=== PATIENT | male | born 1985 | race Caucasian/White ===

== ENCOUNTER 2018-03-27 09:53 | Emergency (ER) | payer OTHER ==
[2018-03-27] MEDS: NS 1,000 ML IV (10:35)
[2018-03-27 10:42] LABS: BASO # 0.1 10^3/uL (0.0-0.2); BASO % 0.7 % (0.0-1.0); EOS # 0.1 10^3/uL (0.0-0.50); EOS % 1.8 % (0.0-3.0); HEMATOCRIT 45.2 % (42.0-52.0); HEMOGLOBIN 15.1 g/dl (13.5-17.5); IMMATURE GRANULOCYTE % 0.3 % (0-3.0); LYMPH # 2.5 10^3/uL (1.5-4.5); LYMPH % 34.6 % (24.0-44.0); MEAN CORPUSCULAR HEMOGLOBIN 30.1 pg (27.0-33.0); MEAN CORPUSCULAR HGB CONC 33.4 g/dl (32.0-36.5); MONO # 0.6 10^3/uL (0.0-0.8); MONO % 8.3 % (0.0-5.0); NEUTROPHILS # 3.9 10^3/uL (1.8-7.7); NEUTROPHILS % 54.3 % (36.0-66.0); PLATELET COUNT, AUTOMATED 205 10^3/uL (150-450); RED BLOOD COUNT 5.02 10^6/uL (4.30-6.10); RED CELL DISTRIBUTION WIDTH 11.6 % (11.5-14.5); WHITE BLOOD COUNT 7.2 10^3/uL (4.0-10.0)
[2018-03-27] MEDS: GASTROGRAFIN SOLUTION 30ML PO ×2 (10:52→11:20)
[2018-03-27 11:12] LABS: ALBUMIN 4.2 GM/DL (3.2-5.2); ALBUMIN/GLOBULIN RATIO 1.35 (1.00-1.93); ALKALINE PHOSPHATASE 83 U/L (45-117); ALT/SGPT 48 U/L (12-78); ANION GAP 9 MEQ/L (8-16); AST/SGOT 18 U/L (7-37); BILIRUBIN,DIRECT < 0.1 MG/DL (0.0-0.2); BILIRUBIN,TOTAL 0.5 MG/DL (0.2-1.0); BLOOD UREA NITROGEN 16 MG/DL (7-18); C REACTIVE PROTEIN QUANTITATIV < 0.30 MG/DL (0.00-0.30); CALCIUM LEVEL 9.3 MG/DL (8.5-10.1); CARBON DIOXIDE LEVEL 29 MEQ/L (21-32); CHLORIDE LEVEL 105 MEQ/L (98-107); CREATININE FOR GFR 1.04 MG/DL (0.70-1.30); GLOMERULAR FILTRATION RATE > 60.0 (>60); GLUCOSE, FASTING 95 MG/DL (70-100); LIPASE 151 U/L (73-393); SODIUM LEVEL 143 MEQ/L (136-145); TOTAL PROTEIN 7.3 GM/DL (6.4-8.2)
[2018-03-27 11:31] LABS: ERYTHROCYTE SEDIMENTATION RATE 2 mm/hr (0-15)
[2018-03-27] MEDS ORDERED: ISOVUE-370 76% 100ML VIAL (Q9967) As Ordered (11:55)
== END 2018-03-27 13:33 | disposition home or self-care (01) ==
LOC: M ED 09:53
DX: K92.1 Melena (principal); K52.9 Noninfective gastroenteritis and colitis, unspecified
CPT/HCPCS: Q9963

== ENCOUNTER 2018-10-12 07:06 | Emergency (ER) | payer OTHER, SELFPAY ==
[~2018-10-12] VITALS: Ht 195.6 cm; Wt 90.9 kg
[2018-10-12 07:07] VITALS: BP 127/99
== END 2018-10-12 08:51 | disposition home or self-care (01) ==
LOC: M ED 07:06
DX: G47.00 Insomnia, unspecified (principal)

== ENCOUNTER 2022-04-03 10:27 | Inpatient (IN) | payer SELFPAY, OTHER ==
[~2022-04-03] VITALS: Ht 195.6 cm; Wt 98.2 kg
[2022-04-03 11:57] LABS: HEMATOCRIT 46.3 % (42.0-52.0); HEMOGLOBIN 14.3 g/dl (13.5-17.5); MEAN CORPUSCULAR HEMOGLOBIN 28.4 pg (27.0-33.0); MEAN CORPUSCULAR HGB CONC 30.9 g/dl (32.0-36.5); PLATELET COUNT, AUTOMATED 255 10^3/uL (150-450); RED BLOOD COUNT 5.03 10^6/uL (4.30-6.10); WHITE BLOOD COUNT 8.5 10^3/uL (4.0-10.0)
[2022-04-03 12:13] LABS: AMPHETAMINES LEVEL URINE NEGATIVE (NEGATIVE); BARBITURATES URINE NEGATIVE (NEGATIVE); BENZODIAZEPINES URINE NEGATIVE (NEGATIVE); CANNABINOIDS URINE NEGATIVE (NEGATIVE); COCAINE METABOLITE URINE NEGATIVE (NEGATIVE); METHADONE URINE NEGATIVE (NEGATIVE); OPIATES URINE NEGATIVE (NEGATIVE); PHENCYCLIDINE URINE NEGATIVE (NEGATIVE)
[2022-04-03 12:22] LABS: ETHYL ALCOHOL (ETHANOL) 0.003 % (0.000-0.010)
[2022-04-03 12:24] LABS: ACETAMINOPHEN LEVEL < 2.0 UG/ML (10.0-20.0); ALBUMIN 4.3 G/DL (3.2-5.2); ALKALINE PHOSPHATASE 100 U/L (46-116); ALT/SGPT 42 U/L (7.0-40); AST/SGOT 21 U/L (<34); BILIRUBIN,DIRECT 0.1 MG/DL (<0.4); BILIRUBIN,TOTAL 0.4 MG/DL (0.3-1.2); BLOOD UREA NITROGEN 9 MG/DL (9-23); CALCIUM LEVEL 10.1 MG/DL (8.5-10.1); CARBON DIOXIDE LEVEL 30 MMOL/L (20-31); CHLORIDE LEVEL 103 MMOL/L (98-107); CREATININE FOR GFR 0.88 MG/DL (0.70-1.30); GLOMERULAR FILTRATION RATE > 60.0 (>60); GLUCOSE, FASTING 90 MG/DL (60-100); POTASSIUM SERUM 4.5 MMOL/L (3.5-5.1); SALICYLATE LEVEL < 3.0 MG/DL (<30); SODIUM LEVEL 141 MMOL/L (136-145); TOTAL PROTEIN 7.4 G/DL (5.7-8.2)
[2022-04-03 12:26] LABS: THYROID STIMULATING HORMONE 0.824 uIU/ML (0.55-4.78)
[2022-04-03 12:38] LABS: RSV AMPLIFICATION NEGATIVE (NEGATIVE)
[2022-04-03] MEDS ORDERED: IBUPROFEN 600MG TAB PO ONE (14:00)
[2022-04-03] MEDS ORDERED: HOME MED LIST COMPLETE! XX SCH (14:05)
[2022-04-03 19:29] LABS: APPEARANCE, URINE MANUAL CLEAR (CLEAR); BILIRUBIN, URINE MANUAL NEGATIVE (NEGATIVE); BLOOD URINE MANUAL NEGATIVE (NEGATIVE); COLOR, URINE MANUAL YELLOW (YELLOW); GLUCOSE, URINE (UA) MANUAL NEGATIVE (NEGATIVE); KETONE, URINE MANUAL NEGATIVE (NEGATIVE); LEUKOCYTE ESTERASE, URINE MAN NEGATIVE (NEGATIVE); NITRITE, URINE MANUAL NEGATIVE (NEGATIVE); PH,URINE MAN 6.5 UNITS (5.0 - 7.0); PROTEIN, URINE MANUAL NEGATIVE (NEGATIVE); UROBILINOGEN, URINE MANUAL NORMAL (NORMAL)
[2022-04-04] MEDS ORDERED: IBUPROFEN 600MG TAB PO ONE (12:55)
[2022-04-04] MEDS ORDERED: MAALOX 30 ML SUSP *UDC PO PRN (13:05)
[2022-04-04] MEDS ORDERED: MOM 30ML SUSPENSION UDC PO PRN (13:05)
[2022-04-04 17:21] VITALS: BP 139/83
[2022-04-04] MEDS: ACETAMINOPHEN TAB 650MG DOSE (2X325MG) PO PRN (20:37)
[2022-04-04] MEDS: traZODone 50 MG TAB PO PRN (23:09)
[2022-04-05 06:46] VITALS: BP 108/78
[2022-04-05] MEDS ORDERED: hydrOXYzine 50 MG TAB PO PRN (09:35)
[2022-04-05] MEDS: SERTRALINE HCL 50 MG TAB PO SCH (09:48)
[2022-04-05] MEDS: ACETAMINOPHEN TAB 650MG DOSE (2X325MG) PO PRN (12:51)
[2022-04-05 15:27] LABS: HEMATOCRIT 46.2 % (42.0-52.0); HEMOGLOBIN 14.6 g/dl (13.5-17.5); MEAN CORPUSCULAR HEMOGLOBIN 28.8 pg (27.0-33.0); MEAN CORPUSCULAR HGB CONC 31.6 g/dl (32.0-36.5); MEAN CORPUSCULAR VOLUME 91.1 fl (80.0-96.0); PLATELET COUNT, AUTOMATED 258 10^3/uL (150-450); RED BLOOD COUNT 5.07 10^6/uL (4.30-6.10); WHITE BLOOD COUNT 9.2 10^3/uL (4.0-10.0)
[2022-04-05 16:29] VITALS: BP 126/67
[2022-04-05] MEDS: SODIUM CHLORIDE NASAL 0.65% SPRAY BTL (OCEAN) SCH (21:37)
[2022-04-05] MEDS: FLUTICASONE PROP 0.05% NASAL SPRAY 16 GM (FLONASE) NARES SCH (21:37)
[2022-04-05] MEDS: traZODone 50 MG TAB PO PRN (21:38)
[2022-04-05] MEDS: AUGMENTIN 875 MG TAB PO SCH (21:38)
[2022-04-06 06:23] VITALS: BP 116/67
[2022-04-06] MEDS: SODIUM CHLORIDE NASAL 0.65% SPRAY BTL (OCEAN) SCH ×2 (08:40→21:29)
[2022-04-06] MEDS: AUGMENTIN 875 MG TAB PO SCH ×2 (08:41→21:28)
[2022-04-06] MEDS: SERTRALINE HCL 50 MG TAB PO SCH (08:41)
[2022-04-06] MEDS: FLUTICASONE PROP 0.05% NASAL SPRAY 16 GM (FLONASE) NARES SCH ×2 (08:42→21:29)
[2022-04-06] MEDS: IBUPROFEN 400MG TAB PO PRN (13:58)
[2022-04-06] MEDS: ACETAMINOPHEN TAB 650MG DOSE (2X325MG) PO PRN (14:54)
[2022-04-06 16:30] VITALS: BP 130/80
[2022-04-06] MEDS ORDERED: traZODone 100 MG TAB PO PRN (19:15)
[2022-04-07 06:35] VITALS: BP 127/69
[2022-04-07] MEDS: SERTRALINE HCL 50 MG TAB PO SCH (08:19)
[2022-04-07] MEDS: FLUTICASONE PROP 0.05% NASAL SPRAY 16 GM (FLONASE) NARES SCH ×2 (08:19→19:58)
[2022-04-07] MEDS: AUGMENTIN 875 MG TAB PO SCH ×2 (08:19→19:58)
[2022-04-07] MEDS: SODIUM CHLORIDE NASAL 0.65% SPRAY BTL (OCEAN) SCH ×2 (08:19→19:58)
[2022-04-07] MEDS ORDERED: SERTRALINE 100 MG TAB PO SCH (09:00)
[2022-04-07 16:41] VITALS: BP 128/76
[2022-04-07] MEDS: IBUPROFEN 400MG TAB PO PRN (20:00)
[2022-04-07] MEDS ORDERED: CYCLOBENZAPRINE 5MG TABLET PO SCH (21:00)
[2022-04-08 07:00] VITALS: BP 117/84
[2022-04-08] MEDS: SODIUM CHLORIDE NASAL 0.65% SPRAY BTL (OCEAN) SCH (09:24)
[2022-04-08] MEDS: FLUTICASONE PROP 0.05% NASAL SPRAY 16 GM (FLONASE) NARES SCH (09:24)
[2022-04-08] MEDS: SERTRALINE HCL 50 MG TAB PO SCH (09:24)
[2022-04-08] MEDS: AUGMENTIN 875 MG TAB PO SCH (09:24)
[2022-04-08] MEDS ORDERED: TRAZ-257 PO (13:00)
[2022-04-08] MEDS ORDERED: AMOX875T2 PO (13:00)
[2022-04-08] MEDS ORDERED: SERT50TA29 PO (13:00)
[2022-04-08] MEDS ORDERED: CYCL5TAB PO (13:00)
[2022-04-08] MEDS ORDERED: FLUTISP NARES (13:00)
== END 2022-04-08 14:01 | disposition home or self-care (01) | DRG 754 ==
LOC: M ED 10:27 → M ED INP 04-04 13:02 → M PSY 04-04 16:19
PROVIDERS: ADMIT Psychiatry & Neurology Psychiatry; ATTEND Psychiatry & Neurology Psychiatry
DX: F32.A Depression, unspecified (principal); R45.851 Suicidal ideations; F41.9 Anxiety disorder, unspecified; F43.10 Post-traumatic stress disorder, unspecified; F10.10 Alcohol abuse, uncomplicated; Z63.0 Problems in relationship with spouse or partner; Z91.82 Personal history of military deployment; Z20.822 Contact with and (suspected) exposure to COVID-19; J01.90 Acute sinusitis, unspecified; F17.200 Nicotine dependence, unspecified, uncomplicated